=== PATIENT | female | born 1970 | race Caucasian/White ===

== ENCOUNTER 2017-11-01 08:39 | Emergency (ER) | payer OTHER ==
[~2017-11-01] VITALS: Ht 165.1 cm; Wt 70.4 kg
[2017-11-01] MEDS ORDERED: CYCL-1 PO (08:59)
[2017-11-01] MEDS ORDERED: dexamethasone sod phosphate 10mg/ml inj IM STA (09:02)
[2017-11-01 10:40] VITALS: BP 131/84
== END 2017-11-01 10:42 | disposition home or self-care (01) ==
LOC: ER 08:39
DX: S13.4XXA Sprain of ligaments of cervical spine, initial encounter (principal); M54.5 Low back pain; I10 Essential (primary) hypertension; G89.29 Other chronic pain; Z98.890 Other specified postprocedural states; Z88.0 Allergy status to penicillin; Z79.899 Other long term (current) drug therapy; V53.5XXA Driver of pick-up truck or van injured in collision with car, pick-up truck or van in traffic accident, initial encounter; Y93.89 Activity, other specified; Y92.410 Unspecified street and highway as the place of occurrence of the external cause; Y99.8 Other external cause status
CPT/HCPCS: 72040; 96372; 99284; J1100

== ENCOUNTER 2019-07-20 05:26 | Day surgery (SDC) | payer BC ==
[2019-05-29 15:24] LABS: BASOPHILS # (AUTO) 0.1 X10'3 (0-0.2); EOSINOPHILS # (AUTO) 0.1 X10'3 (0-0.9); EOSINOPHILS % (AUTO) 1.3 % (0-6); LYMPHOCYTES # (AUTO) 3.3 X10'3 (1.1-4.8); LYMPHOCYTES % (AUTO) 42.1 % (21-51); MEAN CORPUSCULAR HEMOGLOBIN 31.4 PG (27.0-31.0); MEAN CORPUSCULAR VOLUME 92.2 FL (78-98); MEAN PLATELET VOLUME 7.1 FL (7.4-10.4); MONOCYTES # (AUTO) 0.5 X10'3 (0-0.9); MONOCYTES % (AUTO) 5.9 % (2-12); NEUTROPHILS # (AUTO) 3.9 X10'3 (1.8-7.7); NEUTROPHILS % (AUTO) 49.7 % (42-75); PRE OP HEMATOCRIT 40.7 % (35.0-45.0); PRE OP HEMOGLOBIN 13.9 g/dL (12.0-16.0); PRE OP PLATELET COUNT 373 X10'3 (140-440); RED BLOOD COUNT 4.41 X10'6 (4.20-5.60); RED CELL DISTRIBUTION WIDTH 12.7 % (11.5-14.5)
[2019-05-29 15:36] LABS: ALBUMIN 4.4 G/DL (3.4-5.0); ALBUMIN/GLOBULIN RATIO 1.2 (1.1-1.5); ALKALINE PHOSPHATASE 74 IU/L (46-116); BLOOD UREA NITROGEN 13 MG/DL (7-18); BUN/CREATININE RATIO 16.7 (6.6-38.0); CALCIUM 8.7 MG/DL (8.5-10.1); CHLORIDE 104 MMOL/L (99-107); CREATININE 0.78 MG/DL (0.40-0.90); PRE OP ALT 15 U/L (30-65); PRE OP ANION GAP 6 (8-16); PRE OP AST 17 U/L (10-37); PRE OP BILIRUB, TOTAL 0.3 MG/DL (0.0-1.0); PRE OP GLUCOSE 94 MG/DL (70-104); PRE OP POTASSIUM 4.1 MMOL/L (3.4-5.1); PRE OP SODIUM 141 MMOL/L (135-145); TOTAL CARBON DIOXIDE 31.1 MMOL/L (24-32); TOTAL PROTEIN 8.1 G/DL (6.4-8.2); eGFR 79 ML/MIN
[2019-07-14 13:11] LABS: BASOPHILS # (AUTO) 0.2 X10'3 (0-0.2); BASOPHILS % (AUTO) 1.7 % (0-1); EOSINOPHILS # (AUTO) 0.1 X10'3 (0-0.9); EOSINOPHILS % (AUTO) 1.4 % (0-6); HEMATOCRIT 43.8 % (35.0-45.0); HEMOGLOBIN 14.8 g/dl (12.0-16.0); LYMPHOCYTES # (AUTO) 3.3 X10'3 (1.1-4.8); LYMPHOCYTES % (AUTO) 33.2 % (21-51); MEAN CORPUSCULAR HEMOGLOBIN 31.4 PG (27.0-31.0); MEAN CORPUSCULAR HGB CONC 33.7 g/dL (33.0-36.5); MEAN CORPUSCULAR VOLUME 93.4 FL (78-98); MEAN PLATELET VOLUME 7.3 FL (7.4-10.4); MONOCYTES # (AUTO) 0.7 X10'3 (0-0.9); MONOCYTES % (AUTO) 6.7 % (2-12); NEUTROPHILS # (AUTO) 5.7 X10'3 (1.8-7.7); PLATELET COUNT 426 X10'3 (140-440); RED BLOOD COUNT 4.69 X10'6 (4.20-5.60); RED CELL DISTRIBUTION WIDTH 13.6 % (11.5-14.5); WHITE BLOOD COUNT 9.9 X10'3 (4.5-11.0)
[2019-07-14 13:44] LABS: BLOOD UREA NITROGEN 8 MG/DL (7-18); BUN/CREATININE RATIO 8.8 (6.6-38.0); CHLORIDE 102 MMOL/L (99-107); CREATININE 0.91 MG/DL (0.40-0.90); PRE OP BILIRUB, TOTAL 0.2 MG/DL (0.0-1.0); PRE OP GLUCOSE 73 MG/DL (70-104); PRE OP POTASSIUM 3.6 MMOL/L (3.4-5.1); PRE OP SODIUM 140 MMOL/L (135-145); eGFR 66 ML/MIN
[2019-07-14 13:50] LABS: ALBUMIN 4.3 G/DL (3.4-5.0); ALBUMIN/GLOBULIN RATIO 1.1 (1.1-1.5); ALKALINE PHOSPHATASE 83 IU/L (46-116); CALCIUM 8.9 MG/DL (8.5-10.1); PRE OP ALT 18 U/L (30-65); PRE OP ANION GAP 8 (8-16); PRE OP AST 14 U/L (10-37); TOTAL PROTEIN 8.3 G/DL (6.4-8.2)
[~2019-07-20] VITALS: Ht 165.1 cm; Wt 72.6 kg
[~2019-07-20 05:26] MED LIST: IBUP-24 PO; ringers solution, lacted 1,000 ML IV SCH
[2019-07-20 05:30] VITALS: BP 146/97
[2019-07-20] MEDS ORDERED: famotidine 20mg tablet PO ONE (05:30)
[2019-07-20] MEDS ORDERED: clindamycin-Cleocin 900mg/D5W 50 ML IV ONE (05:30)
[2019-07-20] MEDS ORDERED: LIDOcaine 1% (10mg/ml) 2ml vial ONE (05:41)
[2019-07-20] MEDS ORDERED: BUPIVAcaine/PF 2.5 mg/ml (0.25%) 30ml vial ONE (06:41)
[2019-07-20] MEDS ORDERED: LIDOcaine 1% 30ml preserv. free vial ONE (06:41)
[2019-07-20] MEDS ORDERED: ringers solution, lacted 1,000 ML IV SCH (07:12)
[2019-07-20] MEDS ORDERED: ondansetron/PF 4mg/2ml inj IV PRN (07:15)
[2019-07-20] MEDS ORDERED: morphine 2 MG/ML inj. syringe IV PRN (07:15)
[2019-07-20] MEDS ORDERED: labetalol 20mg/4ml (5mg/ml) syringe IV PRN (07:15)
[2019-07-20] MEDS ORDERED: hydrALAZINE 20mg/ml inj. IV PRN (07:15)
[2019-07-20] MEDS ORDERED: morphine 4 MG/ML inj SYRINge IV PRN (07:15)
[2019-07-20] MEDS ORDERED: fentaNYL/PF 50MCG/1 ML 2ML syringe IV PRN ×2 (07:15)
[2019-07-20] MEDS ORDERED: midazolam 2 mg/2 ml injection ONE (07:27)
[2019-07-20] MEDS ORDERED: fentaNYL/PF 50MCG/1 ML 2ML syringe ONE (07:27)
[2019-07-20] MEDS ORDERED: ondansetron/PF 4mg/2ml inj ONE (07:28)
[2019-07-20] MEDS ORDERED: dexamethasone sod phosphate 4mg/ml inj. ONE (07:28)
[2019-07-20] MEDS ORDERED: rocuronium 10mg/ml inj IV ONE (07:28)
[2019-07-20] MEDS ORDERED: propofol inj 20 ML IV ONE (07:28)
[2019-07-20] MEDS ORDERED: LIDOcaine 2% (20mg/ml) 5ml vial ONE (07:28)
[2019-07-20] MEDS ORDERED: sevoflurane 250ml liquid IH ONE (07:43)
[2019-07-20] MEDS ORDERED: labetalol 20mg/4ml (5mg/ml) syringe IV ONE (07:57)
[2019-07-20 08:49] VITALS: BP 163/51
[2019-07-20 08:59] VITALS: BP 143/91
[2019-07-20] MEDS ORDERED: HYDROcodone/acetaminophen 5mg/325mg tablet PO PRN (09:00)
[2019-07-20 09:09] VITALS: BP 137/87
[2019-07-20 09:19] VITALS: BP 129/88
--- NOTE | 2019-07-20 09:29 | NUR ---
All dc criteria for discharge home has been met. IV taken out without complications. All questions answered regarding dc paperwork. Vss. Significant other present to take patient home. Dressings cdi and vital signs stable. Taken out via wheelchair to personal vehicle where patient taken home by family/friend. Addendum: 07/20/19 at 0938 by Felipe Mcallister RN, RN Amended: Links added.
== END 2019-07-20 09:29 | disposition home or self-care (01) ==
LOC: PAS 05:26
PROVIDERS: ATTEND Surgery
DX: R22.1 Localized swelling, mass and lump, neck (principal); D17.0 Benign lipomatous neoplasm of skin and subcutaneous tissue of head, face and neck; M19.90 Unspecified osteoarthritis, unspecified site; E66.9 Obesity, unspecified; Z68.26 Body mass index [BMI] 26.0-26.9, adult; Z87.891 Personal history of nicotine dependence; Z98.1 Arthrodesis status; Z79.899 Other long term (current) drug therapy; Z88.0 Allergy status to penicillin; Z82.61 Family history of arthritis; Z80.0 Family history of malignant neoplasm of digestive organs; Z98.51 Tubal ligation status; Z11.59 Encounter for screening for other viral diseases
CPT/HCPCS: 21556; 36415; 80053; 82948; 85025; 87635; J1100; J2001; J2250; J2405; J2704; J3010; J3490; J7120; A4215; A4618; A7000